=== PATIENT | male | born 1930 | race Caucasian/White ===

== ENCOUNTER 2017-07-13 12:11 | Emergency (ER) | payer OTHER ==
[2017-07-13 12:23] VITALS: BP_SYST 178; BP_SYST 180; BP_DIAS 79; BP_DIAS 87; PULSE 133; RESP 18; TEMP 97.7; TEMP 98.1; O2SAT 91; O2SAT 95
--- NOTE | 2017-07-13 12:25 | PD ---
HPI Chief Complaint: Automatic Equipment Technician Problem Time Seen by Provider: 12:24 Travel History International Travel<30 days: No Contact w/Intl Traveler<30days: No Traveled to known affect area: No History of Present Illness HPI 87-year-old male came to the emergency room with a duckbill voice prostatic device which fell off his trach. Patient cannot talk and has been very agitated. He refuses to write anything on paper. He did give me his daughter' s phone number and said that his daughter puts it in every time. Vital signs are stable. It is Impossible to reason with this gentleman. I called his daughter who explained to me how the prostatic device goes in. She said that once it goes and he knows that it's in place and he'll be able to talk some. Patient is not in any respiratory distress. [facility] Past Medical History Narrative Medical List of his past medical, surgical, social and family history as reviewed from the nursing note. ?: Not Social History Tobacco Use: Yes Allergies-Medications (Allergen,Severity, Reaction): Coded Allergies: Unable to Assess (Verified Allergy, Unknown, 07/13/17) Comments List of his allergies were unable to be assessed by the nurse Reported Meds & Prescriptions Reported Meds & Active Scripts Active Active Prescriptions or Reported Medications Unobtainable Narrative Medication Unobtainable Review of Systems Except as stated in HPI: all other systems reviewed are Neg Psychiatric: Positive: Anxiety Physical Exam Narrative GENERAL: Awake, alert, agitated, anxious, no obvious distress SKIN: Focused skin assessment warm/dry. HEAD: Atraumatic. Normocephalic. EYES: Pupils equal and round. No scleral icterus. No injection or drainage. ENT: No nasal bleeding or discharge. Mucous membranes pink and moist. NECK: Trachea midline. No JVD. Tracheostomy CARDIOVASCULAR: Regular rate and rhythm. No murmur appreciated. RESPIRATORY: No accessory muscle use. Clear to auscultation. Breath sounds equal bilaterally. GASTROINTESTINAL: Abdomen soft, non-tender, nondistended. Hepatic and splenic margins not palpable. MUSCULOSKELETAL: No obvious deformities. No clubbing. No cyanosis. No edema. NEUROLOGICAL: Awake and alert. No obvious cranial nerve deficits. Motor grossly within normal limits. Normal speech. PSYCHIATRIC: Appropriate mood and affect; insight and judgment normal. Data Data Last Documented VS Vital Signs Date Time Temp Pulse Resp B/P (MAP) Pulse Ox O2 Delivery O2 Flow Rate FiO2 07/13/17 12:52 106 94 07/13/17 12:23 97.7 18 180/79 (112) Orders Orders Ed Discharge Order (07/13/17 12:43) MDM Medical Decision Making Medical Screen Exam Complete: Yes Emergency Medical Condition: Yes Medical Record Reviewed: Yes Differential Diagnosis Laryngeal voice device malfunction Narrative Course 12:46 PM I went back to insert a new device that patient had in the box but he insisted that I put in the old one which was covered in dried mucus. I tried to explain to him that the instructions and the booklet says clearly that the device should be clean. Patient tried to wash it himself. This was reinserted by me. Please refer to my procedure note. Will be discharged home. He was able to talk some after this. He continued to be agitated however since it took this long for us to figure it out and insert it. I did point to his daughter once the procedure was done that since I saw the patient to the reinsertion of the device it was 16 minutes. Procedures Procedure Narrative Duckbill laryngeal device reinserted: The smaller hole within the tracheal stoma on the posterior wall was located and the device was reinserted. Patient tolerated the procedure well. EKG Prior to Arrival: No Diagnosis Primary Impression: laryngeal device replacement Additional Impression: Anxiety Referrals: Primary Care Physician Additional Instructions: Follow-up with your primary care Med/Other Pt SpecificInfo: No Change to Meds Scripts Unable to Obtain Active Prescriptions or Reported Meds Disposition: 01 DISCHARGE HOME Condition: Stable Samantha Rucker MD Jul 13, 2017 12:25
== END 2017-07-13 13:13 | disposition home or self-care (01) ==
LOC: PHED 12:11
DX: F41.9 Anxiety disorder, unspecified (principal); Z44.8 Encounter for fitting and adjustment of other external prosthetic devices; Z72.0 Tobacco use
CPT/HCPCS: 99282